=== PATIENT | male | born 1965 | race Hispanic/Latino ===

== ENCOUNTER 2022-08-23 13:38 | Emergency (ER) | payer OTHER ==
--- OUTSIDE RECORDS SUMMARY | 2022-08-23 13:42 | XMS REPORT | Continuity of Care Document ---
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 Respiratory rate 2022-04-03 14:00:00 16 /min Sarah Beth ey Seybold - External Body height 2022-04-03 14:00:00 154.9 cm Jie Veloz eybold - External Body weight 2022-04-03 14:00:00 79.379 kg Jie Veloz eybold - External BMI 2022-04-03 14:00:00 33.07 kg/m2 Jie Veloz eybold - External Systolic blood 2022-03-16 17:24:00 122 mm[Hg] Jie Seybold - pressure External Diastolic blood 2022-03-16 17:24:00 64 mm[Hg] Kelse y Seybold - pressure External Heart rate 2022-03-16 17:24:00 93 /min Jie S eybold - External Body temperature 2022-03-16 17:24:00 37.39 Luzma Sarah Beth ey Seybold - External Respiratory rate 2022-03-16 17:24:00 14 /min Sarah Beth Dotson - External Body height 2022-03-16 17:24:00 154.9 cm Jie pérezbomarlys - External Body weight 2022-03-16 17:24:00 80.74 kg Jie pérezbomarlys - External BMI 2022-03-16 17:24:00 33.63 kg/m2 Jie soto - External Respiratory rate 2022-03-08 04:00:00 20 /min [facility] Oxygen saturation in 2022-03-08 04:00:00 99 /min [facility] Arterial blood by [facility] Pulse oximetry Branch Systolic blood 2022-03-08 04:00:00 136 mm[Hg] Univer sity of pressure [facility] Diastolic blood 2022-03-08 04:00:00 88 mm[Hg] Unive rsity of [facility] Heart rate 2022-03-08 04:00:00 92 /min [facility] of [facility] Body temperature 2022-03-08 01:32:00 36.56 Luzma Univ ersity of [facility] Body height 2022-03-08 01:32:00 154.9 cm [facility] Body weight 2022-03-08 01:32:00 72.576 kg [facility] BMI 2022-03-08 01:32:00 30.23 kg/m2 [facility] Systolic blood 2021-12-31 23:05:00 149 mm[Hg] [facility]iver [facility] Diastolic blood 2021-12-31 23:05:00 90 mm[Hg] Unive rsity of pressure [facility] Heart rate 2021-12-31 23:05:00 83 /min [facility] Body temperature 2021-12-31 23:05:00 37.17 Luzma Univ ers[facility] Respiratory rate 2021-12-31 23:05:00 18 /min [facility] Body height 2021-12-31 23:05:00 154.9 cm [facility] Body weight 2021-12-31 23:05:00 78.926 kg [facility] BMI 2021-12-31 23:05:00 32.88 kg/m2 [facility] Oxygen saturation in 2021-12-31 23:05:00 96 /min University of Arterial blood by [facility] Pulse oximetry Branch Systolic blood 2021-09-14 15:33:00 126 mm[Hg] Jie Seybold pressure Diastolic blood 2021-09-14 15:33:00 78 mm[Hg] Kelse y Seybold pressure Heart rate 2021-09-14 15:33:00 78 /min Jie S eybold Body temperature 2021-09-14 15:33:00 36.83 Luzma Sarah Beth ey Seybold Respiratory rate 2021-09-14 15:33:00 20 /min Sarah Beth ey Seybold Body height 2021-09-14 15:33:00 154.9 cm Jie S eybold Body weight 2021-09-14 15:33:00 80.287 kg Jie S eybold BMI 2021-09-14 15:33:00 33.44 kg/m2 Jie S eybold Oxygen saturation in 2021-09-14 15:33:00 98 /min Jie ybold Arterial blood by Pulse oximetry Systolic blood 2021-05-04 16:03:00 120 mm[Hg] Jie Seybold pressure Diastolic blood 2021-05-04 16:03:00 70 mm[Hg] Kelse y Seybold pressure Heart rate 2021-05-04 16:03:00 98 /min Jie S eybold Body temperature 2021-05-04 16:03:00 36.17 Luzma Sarah Beth ey Seybold Respiratory rate 2021-05-04 16:03:00 14 /min Sarah Beth ey Seybold Body height 2021-05-04 16:03:00 154.9 cm Jie S eybold Body weight 2021-05-04 16:03:00 82.555 kg Jie S eybold BMI 2021-05-04 16:03:00 34.39 kg/m2 Jie S eybold Systolic blood 2020-12-23 14:29:00 126 mm[Hg] Jie Seybold pressure Diastolic blood 2020-12-23 14:29:00 72 mm[Hg] Kelse y Seybold pressure Heart rate 2020-12-23 14:29:00 65 /min Jie soto Body temperature 2020-12-23 14:29:00 36.61 Luzma Sarah Beth Dotson Respiratory rate 2020-12-23 14:29:00 14 /min Sarah Beth Dotson Body height 2020-12-23 14:29:00 154.9 cm Jie soto Body weight 2020-12-23 14:29:00 81.012 kg Jie soto BMI 2020-12-23 14:29:00 33.75 kg/m2 Jie soto Oxygen saturation in 2020-12-23 14:29:00 98 /min Jie Dotson Arterial blood by Pulse oximetry Procedures Procedure Date / Time Performed Performing Clinician [facility] aaron CT CERVICAL SPINE WO 2022-03-08 02:36:06 Patricia Bernardo [facility] CONTRAST Medical Branch CT HEAD WO CONTRAST 2022-03-08 02:36:06 Patricia Bernardo [facility] CT LUMBAR SPINE WO 2022-03-08 02:36:06 Patricia Bernardo [facility] CONTRAST Medical Branch CT THORACIC SPINE WO 2022-03-08 02:36:06 Patricia Bernardo [facility] CONTRAST Medical Branch XR CHEST 1 VW 2022-03-08 02:35:46 Patricia Bernardo [place] [facility] XR KNEE <3 VW RIGHT 2022-03-08 02:35:46 Patricia Bernardo [facility] CT CERVICAL SPINE WO 2022-01-01 00:31:36 Kole Pierce [facility] CONTRAST Medical Branch CT LUMBAR SPINE WO 2022-01-01 00:31:36 Kole Pierce [facility] CONTRAST Medical Branch CT THORACIC SPINE WO 2022-01-01 00:31:36 Kole Pierce [facility] CONTRAST Medical Branch CONSENT/REFUSAL FOR 2021-12-31 22:53:02 Doctor Unassigned, No Un [facility] DIAGNOSIS AND Name Medical Branch TREATMENT Encounters Start End Encounter Admission Attending Care Care Encounter Source Date/Time Date/Time Type Type Clinicians Facility Department ID 2022-10-19 2022-10-19 Outpatient PREZASJIE [id number] Jie 08:00:00 08:00:00 CEZAR Seybol d 2022-08-01 2022-08-01 Outpatient JIE LANIER [id number] Jie 00:00:00 00:00:00 Seybol d 2022-07-21 2022-07-21 Outpatient PREZAS, JIE LANIER [id number] Jie 00:00:00 00:00:00 CEZAR Seybol d 2022-07-20 2022-07-20 Outpatient PREZASJIE [id number] Jie 09:45:00 09:45:00 CEZAR Seybol d 2022-07-20 2022-07-20 Outpatient LAB90 JIE LANIER [id number] Jie 09:00:00 09:00:00 Seybol d 2022-07-04 2022-07-04 Outpatient PREZASJIE [id number] Jie 10:00:00 10:00:00 CEZAR Seybol d 2022-07-03 2022-07-03 Outpatient PREZASJIE [id number] Jie 00:00:00 00:00:00 CEZAR Seybol d 2022-06-27 2022-06-27 Outpatient JIE LANIER [id number] Jie 00:00:00 00:00:00 Seybol d 2022-06-09 2022-06-09 Outpatient JIE MERCADO [id number] Jie 00:00:00 00:00:00 ATIYA Seybol d 2022-05-31 2022-05-31 Outpatient JIE LANIER [id number] Jie 00:00:00 00:00:00 Seybol d 2022-05-01 2022-05-01 Outpatient JIE CAO [id number] Jie 15:00:00 15:00:00 CEZAR Seybol d 2022-04-28 2022-04-28 Outpatient JIE MERCADO [id number] Jie 00:00:00 00:00:00 ATIYA Seybol d 2022-04-13 2022-04-13 Outpatient JIE CAO [id number] Jie 13:30:00 13:30:00 CEZAR Seybol d 2022-04-03 2022-04-03 Outpatient JIE CRAWFORD [id number] Jie 13:30:00 13:30:00 ИРИНА Seybo ld 2022-04-03 2022-04-03 Outpatient LAB90 JIE LANIER [id number] Jie 09:00:00 09:00:00 Seybol d 2022-04-03 2022-04-03 Outpatient JIE CAO [id number] Jie 08:00:00 08:00:00 CEZAR Seybol d 2022-04-03 2022-04-03 Outpatient JIE CRAWFORD [id number] Jie 00:00:00 00:00:00 ИРИНА Seybo ld 2022-03-31 2022-03-31 Outpatient JIE LANIER [id number] Jie 00:00:00 00:00:00 Seybol d 2022-03-30 2022-03-30 Outpatient JIE CAO [id number] Jie 10:00:00 10:00:00 CEZAR Seybol d 2022-03-20 2022-03-20 Outpatient JIE LANIER [id number] Jie 00:00:00 00:00:00 Seybol d 2022-03-20 2022-03-20 Outpatient JIE LANIER [id number] Jie 00:00:00 00:00:00 Seybol d 2022-03-20 2022-03-20 Outpatient JIE CAO [id number] Jie 00:00:00 00:00:00 CEZAR Seybol d 2022-03-20 2022-03-20 Outpatient JIE MERCADO [id number] Jie 00:00:00 00:00:00 ATIYA Seybol d 2022-03-17 2022-03-17 Outpatient JIE CAO [id number] Jie 00:00:00 00:00:00 CEZAR Seybol d 2022-03-16 2022-03-16 Outpatient JIE CAO [id number] Jie 11:15:00 11:15:00 CEZAR Seybol d 2022-03-07 2022-03-07 [facility] [id number] Univers 19:36:00 22:59:00 PATRICIA [facility] 2022-03-07 2022-03-07 [facility] [id number] Univers 19:36:00 22:59:00 Patricia S [facility] [id number] i ty of [place] [id number] [facility] [id number] [address] 2022-01-02 2022-01-02 Outpatient JIE CAO [id number] Jie 00:00:00 00:00:00 CEZAR Seybol d 2022-01-02 2022-01-02 Outpatient JIE CAO [id number] Jie 00:00:00 00:00:00 CEZAR Seybol d 2021-12-31 2021-12-31 Emergency X STAN [facility] ERT [id number] Univers 18:07[facility]00 [facility] 2021-12-31 2021-12-31 [facility] [id number] Univers 18:07:00 20:47:00 Kole [facility] [id number] i ty of [place] [id number] [facility] [id number] [address] 2021-12-30 2021-12-30 Outpatient LAB90 JIE LANIER [id number] Jie 09:30:00 09:30:00 Seybol d 2021-12-30 2021-12-30 Outpatient JIE CAO [id number] Jie 09:00:00 09:00:00 CEZAR Seybol d 2021-12-15 2021-12-15 Outpatient JIE CAO [id number] Jie 10:00:00 10:00:00 CEZAR Seybol d 2021-11-09 2021-11-09 Outpatient JIE MERCADO [id number] Jie 00:00:00 00:00:00 ATIYA Seybol d 2021-11-08 2021-11-08 Outpatient JIE MERCADO [id number] Jie 00:00:00 00:00:00 ATIYA Seybol d 2021-09-14 2021-09-14 Outpatient LAB90 JIE LANIER [id number] Jie 11:00:00 11:00:00 Seybol d 2021-09-14 2021-09-14 Office [place], Kei [id number] Jie 10:30:00 10:45:00 Visit Atiya Reynolds [id number] Se ybold Somogyi [id number] 2021-05-04 2021-05-04 Office [place], Kei [id number] Jie 10:00:00 10:15:00 Visit Atiya Reynolds [id number] Se ybold Somogyi [id number] 2021-03-24 2021-03-24 Outpatient JIE MERCADO [id number] Jie 10:00:00 10:00:00 ATIYA Seybol d 2021-02-15 2021-02-15 Outpatient JIE MERCADO [id number] Jie 00:00:00 00:00:00 ATIYA Seybol d 2021-02-07 2021-02-07 Outpatient JIE MERCADO [id number] Jie 00:00:00 00:00:00 ATIYA Seybol d 2021-01-05 2021-01-05 Outpatient JIE MERCADO [id number] Jie 00:00:00 00:00:00 ATIYA Seybol d 2020-12-27 2020-12-27 Outpatient LAB90 JIE LANIER [id number] Jie 08:50:00 08:50:00 Seybol d 2020-12-23 2020-12-23 Outpatient [id number] JIE LANIER [id number] Jie 11:25:00 11:25:00 Seybol d 2020-12-232020-12-23 Office Kei Mercado [id number] Jie 09:25:37 09:55:37 Visit Atiya Reynolds [id number] gerri Vergara [id number] 2020-11-29 2020-11-29 Outpatient JIE MERCADO [id number] Jie 10:00:00 10:00:00 ATIYA Zimmermanol chantel 2020-10-25 2020-10-25 Outpatient JESS, JIE LANIER [id number] Jie 10:00:00 10:00:00 ATIYA Zimmermanol chantel 2020-08-25 2020-08-25 [facility] [id number] Univers 14:30:00 14:30:00 GAVI [facility] 2020-08-13 2020-08-13 [facility] [id number] Univers 16:00:00 16:00:00 NAKITA [facility] 2020-02-25 2020-02-25 [facility] [id number] Univers 23:05:00 23:05:00 JOAQUIN [facility] 2019-12-11 2019-12-11 Outpatient Ajibade_O_A VFP VFP [id number] [facility] 03:45:00 03:45:00 H [id number] [facility] Practic [facility] 2019-12-11 2019-12-11 Outpatient Ajibade_O_A VFP VFP [id number] [place] 03:45:00 03:45:00 H [id number] Family Practic e 2019-12-11 2019-12-11 Outpatient Ajibade_O_A VFP VFP [id number] [facility] 03:45:00 03:45:00 H [id number] Family Practic e 2019-06-04 2019-06-04 Outpatient Ige-Odunuga VFP VFP [id number] [place] 07:22:00 07:22:00 _J_AH [id number] Family Practic e 2019-03-17 2019-03-17 [facility] [id number] Univers 16:24:01 20:35:00 MAYURI balderas [facility] Results This patient has no known results.
[2022-08-23] MEDS ORDERED: IBUPROFEN 200 MG TAB PO ONE (14:17)
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
[2022-08-23 16:13] VITALS: BP 139/77; TEMP 98.1; O2SAT 98
== END 2022-08-23 16:01 | disposition home or self-care (01) ==
LOC: ER 13:38
DX: M25.552 Pain in left hip (principal); M25.551 Pain in right hip; V49.59XA Passenger injured in collision with other motor vehicles in traffic accident, initial encounter; E11.9 Type 2 diabetes mellitus without complications; I10 Essential (primary) hypertension
CPT/HCPCS: 73521